=== PATIENT | female | born 1940 | race Caucasian/White ===

== ENCOUNTER 2020-07-06 22:26 | Emergency (ER) | payer OTHER, MEDICARE ==
[2020-07-06] MEDS ORDERED: Bacitracin 1 PK ONE (23:25)
== END 2020-07-06 23:34 | disposition home or self-care (01) ==
LOC: NAV ERS 22:26
DX: S01.01XA Laceration without foreign body of scalp, initial encounter (principal); E78.5 Hyperlipidemia, unspecified; E11.9 Type 2 diabetes mellitus without complications; I10 Essential (primary) hypertension; Z79.82 Long term (current) use of aspirin; Z79.4 Long term (current) use of insulin; W01.10XA Fall on same level from slipping, tripping and stumbling with subsequent striking against unspecified object, initial encounter; Y93.H2 Activity, gardening and landscaping
CPT/HCPCS: 12002; 70450